=== PATIENT | male | born 2000 | race Caucasian/White ===

== ENCOUNTER 2022-04-27 06:15 | Emergency (ER) | payer SELFPAY ==
[~2022-04-27] VITALS: Ht 182.9 cm; Wt 97.5 kg
[2022-04-27 06:15] VITALS: BP 128/71
--- NOTE | 2022-04-27 06:28 | NUR ---
[facility] [employer] WITH PT
--- NOTE | 2022-04-27 06:42 | NUR ---
[facility], PREBOOK. TAKEN TO BED 5
--- NOTE | 2022-04-27 07:16 | NUR ---
Dr. Hernandez examining patient.
[2022-04-27] MEDS ORDERED: MIDAZOLAM 2 MG/2 ML VIAL IM ONE (07:20)
--- NOTE | 2022-04-27 07:25 | NUR ---
Recieved report from KAYLAH Mendoza for transfer of care.
--- NOTE | 2022-04-27 08:20 | NUR ---
STERI-STRIP APPLIED TO PT L POSTERIOR THUMB. + CMS AFTER APPLICATION. WHEN ATTEMPTING TO CLEAN PT WOUNDS, PT STATED HE DID NOT WANT THEM CLEAN. PT ONLY ALLOWED FOR STERI STRIP TO BE PLACED ON L THUMB AFTER IRRIGATION.
[2022-04-27 08:30] VITALS: BP 135/90
--- NOTE | 2022-04-27 08:30 | NUR ---
Patient discharged with v/s stable. Written and verbal after care instructions given. Patient verbalized understanding. Police with in custody. All questions addressed prior to discharge. Advised to follow up with PMD.
--- NOTE | 2022-04-27 08:31 | NUR ---
The patient's care was reviewed and supervised by Kayleigh Spring RN.
== END 2022-04-27 08:30 ==
LOC: MED 06:15
DX: S61.412A Laceration without foreign body of left hand, initial encounter (principal); S40.811A Abrasion of right upper arm, initial encounter; F15.90 Other stimulant use, unspecified, uncomplicated; Z02.89 Encounter for other administrative examinations; W25.XXXA Contact with sharp glass, initial encounter; Y93.89 Activity, other specified; Y92.89 Other specified places as the place of occurrence of the external cause; Y99.8 Other external cause status
CPT/HCPCS: 96372; 99283; J2250

== ENCOUNTER 2023-02-04 22:15 | Emergency (ER) | payer SELFPAY ==
[~2023-02-04] VITALS: Ht 182.9 cm; Wt 75.7 kg
[2023-02-04 22:42] VITALS: BP 132/77
--- NOTE | 2023-02-05 00:04 | NUR ---
Pt to bed 11
--- NOTE | 2023-02-05 00:05 | NUR ---
Patient resting in bed, A/Ox4, chest rise and fall symmetrical, no s/s of distress, on monitor.
[2023-02-05] MEDS ORDERED: BACITRACIN OINT 500 UNITS/GM PKT TP ONE (00:20)
--- NOTE | 2023-02-05 00:26 | NUR ---
Dr. Blunt speaking with patient.
[2023-02-05 00:55] VITALS: BP 120/82
--- NOTE | 2023-02-05 00:55 | NUR ---
Patient discharged with v/s stable. Written and verbal after care instructions given and explained. Patient verbalized understanding. Ambulatory with steady gait. All questions addressed prior to discharge. Advised to follow up with PMD.
== END 2023-02-05 00:55 | disposition home or self-care (01) ==
LOC: MED 22:15
DX: S60.511A Abrasion of right hand, initial encounter (principal); F15.10 Other stimulant abuse, uncomplicated; W22.8XXA Striking against or struck by other objects, initial encounter; Y93.89 Activity, other specified; Y92.89 Other specified places as the place of occurrence of the external cause; Y99.8 Other external cause status
CPT/HCPCS: 73130; 99283